=== PATIENT | male | born 1945 | race Caucasian/White ===

== ENCOUNTER → 2017-04-11 10:30 | Outpatient (CLI) | payer OTHER ==
[~2017-04-11 10:30] MED LIST: AMOX1TAB12 PO; PLAVIX75 MG; ULTRACET PO
== END | disposition home or self-care (01) ==
LOC: MRI 08:15
DX: C18.9 Malignant neoplasm of colon, unspecified (principal)
CPT/HCPCS: 72197; 74183; A9579

== ENCOUNTER 2018-04-03 10:16 | Outpatient (CLI) | payer OTHER | END 2018-04-03 10:35 | disposition home or self-care (01) | LOC: TOM 10:16 | DX: C18.8 Malignant neoplasm of overlapping sites of colon (principal) | CPT/HCPCS: 71046; 74178; Q9965 ==

== ENCOUNTER 2020-06-07 13:23 | Outpatient (CLI) | payer OTHER | END 2020-06-07 13:55 | disposition home or self-care (01) | LOC: OFIC 805 13:23 | PROVIDERS: ATTEND Otolaryngology Otology & Neurotology | DX: H74.03 Tympanosclerosis, bilateral (principal); H91.13 Presbycusis, bilateral ==

== ENCOUNTER 2022-10-09 15:54 | Emergency (ER) | payer OTHER ==
[~2022-10-09] VITALS: Ht 182.9 cm; Wt 90.7 kg
== END 2022-10-09 23:01 | disposition home or self-care (01) ==
LOC: ER 15:54
PROVIDERS: General Practice
DX: J06.9 Acute upper respiratory infection, unspecified (principal); I10 Essential (primary) hypertension; Z20.822 Contact with and (suspected) exposure to COVID-19; N40.0 Benign prostatic hyperplasia without lower urinary tract symptoms; K40.90 Unilateral inguinal hernia, without obstruction or gangrene, not specified as recurrent
CPT/HCPCS: 36415; 71046; 71250; 74177; 96365; 99284; J2930; Q9965

== ENCOUNTER 2022-10-19 16:03 | Inpatient (IN) | payer OTHER ==
[~2022-10-19] VITALS: Ht 175.3 cm; Wt 81.6 kg
[2022-10-19] MEDS ORDERED: ZETIA10 MG (17:02)
[2022-10-19] MEDS ORDERED: METROPOLOL (17:02)
--- NOTE | 2022-10-19 17:03 | NUR ---
PTE ALERTA Y ORIENTADO X3, ACOMPANADO POR HIJA QUIEN REFIERE RESULTADOS DE LAB ALTERADOS, GLOBULOS BLANCOS 11.14, ALP 1723, AST 402, ALT 561 Y BILIRUBIN 3.50. FAMILIAR REFIERE PAISAN LO REFIRIO A [facility] ( NO ES [facility]). SE LONG SV Y SE UBICA.
--- NOTE | 2022-10-19 17:50 | NUR ---
MANUELITO ALEGRIA ORIENTA A PTE SOBRE TRATAMIENTO E INSTRUCCIONES A SEGUIR, EL REFIERE ENTENDER. LE COLECTA MUESTRAS, SE CANALIZA Y SE ADMINISTRA IV FLUIDS FILIPE ORDEN MEDICA
[2022-10-20] MEDS ORDERED: ATORVASTATIN CA40 MG (08:00)
== END 2022-10-26 15:01 | disposition home or self-care (01) | DRG 446 ==
LOC: ER 16:04 → MEDI 20:19
PROVIDERS: General Practice; Internal Medicine; Internal Medicine Gastroenterology; ADMIT Internal Medicine; ATTEND Internal Medicine
PROC: BF37YZZ Magnetic Resonance Imaging (MRI) of Pancreas using Other Contrast (ICD-10-PCS; 2022-10-19)
PROC: BF47ZZZ Ultrasonography of Pancreas (ICD-10-PCS; 2022-10-19)
PROC: B24BYZZ Ultrasonography of Heart with Aorta using Other Contrast (ICD-10-PCS; 2022-10-20)
PROC: 0FJD8ZZ Inspection of Pancreatic Duct, Via Natural or Artificial Opening Endoscopic (ICD-10-PCS; principal; 2022-10-24 07:00)
DX: K83.8 Other specified diseases of biliary tract (principal); I25.10 Atherosclerotic heart disease of native coronary artery without angina pectoris; I10 Essential (primary) hypertension; R74.01 Elevation of levels of liver transaminase levels; J06.9 Acute upper respiratory infection, unspecified; Z85.048 Personal history of other malignant neoplasm of rectum, rectosigmoid junction, and anus

== ENCOUNTER 2023-04-10 11:17 | Day surgery (SDC) | payer OTHER ==
[2023-04-03 10:08] LABS: HEMATOCRIT 45.1 % (39.0-48.0); HEMOGLOBIN 15.5 g/dL (13-16.00); MEAN CELL VOLUME 92.4 fL (80.0-100.00); MEAN CORPUSCULAR HEMOGLOBIN 31.8 pg (27.00-32.0); MEAN CORPUSCULAR HGB CONC 34.4 g/dl (32.0-36.0); PLATELET COUNT 266 K/uL (150-450); RED BLOOD COUNT 4.88 M/uL (4.00-6.00); RED CELL DISTRIBUTION WIDTH 14.4 % (11.5-14.5)
[2023-04-03 10:45] LABS: ALBUMIN 3.8 gm/dL (3.4-5.0); BILIRUBIN TOTAL 0.93 mg/dL (0.3-1.2); CALCIUM 10.2 mg/dL (8.5-10.1); CREATININE SERUM 0.9 mg/dL (0.70-1.30); GFR 81.61; GLOBULINA 4.1 G/DL (2.4-3.5); POTASSIUM 5.1 mEq/L (3.5-5.1); TOTAL PROTEIN 7.9 gm/dL (6.4-8.2)
[2023-04-03 10:46] LABS: INR 1.01; PARTIAL THROMBOPLASTIN TIME 30.8 SECONDS (22.0-34.0); PROTHROMBIN TIME 10.6 SECONDS (9.0-11.5)
[~2023-04-10 11:17] MED LIST changes: +ATORVASTATIN CA40 MG; +METROPOLOL; +ZETIA10 MG
[2023-04-10] MEDS ORDERED: GLUCAGON 1 MG VIAL IV ONE (14:00)
[2023-04-10] MEDS ORDERED: IOVERSOL 320 MG/ML - 100 ML VIAL IV ONE (14:00)
== END 2023-04-10 16:15 | disposition home or self-care (01) ==
LOC: AMB-ERCP 11:17
PROVIDERS: ATTEND Internal Medicine Gastroenterology
DX: K80.50 Calculus of bile duct without cholangitis or cholecystitis without obstruction (principal)

== ENCOUNTER 2023-09-07 21:20 | Emergency (ER) | payer OTHER ==
[~2023-09-07] VITALS: Ht 175.3 cm; Wt 73.5 kg
[~2023-09-07 21:20] MED LIST changes: +ALLEGRA ALLERG180 MG PO; +CEFDINIR300 MG PO; +DERMACINRX THE135 GM TOP; +INTESTINEX680 M1 PO; +KAPSPARGO SPRIN50 MG PO; +METRONIDAZOLE500 MG PO; +PRE PROTEIN1 EACH PO; +PREDNISONE20 M1 PO
[2023-09-07] MEDS ORDERED: 0.9 % SODIUM CHLORIDE 500 ML IV SCH (22:00)
[2023-09-07] MEDS ORDERED: ONDANSETRON HCL 2 MG/ML VIAL IV ONE (22:00)
[2023-09-07] MEDS ORDERED: ONDANSETRON HCL 2 MG/ML VIAL ONE (22:08)
[2023-09-07 22:46] LABS: URINE APPEARANCE Clear; URINE BILIRRUBIN Negative (NEGATIVE); URINE BLOOD Negative; URINE COLOR Yellow; URINE GLUCOSE Negative (NEGATIVE); URINE LEUKOCYTE Negative; URINE NITRATE Negative; URINE PROTEIN Trace (NEGATIVE)
[2023-09-07 22:49] LABS: URINE EPITHELIAL CELLS 2.3 uL (0.0-38.8); URINE RBC 6.7 uL (0.0-20.8); URINE WBC 2.7 uL (0.0-23.2)
[2023-09-07 22:51] LABS: HEMOGLOBIN 12.6 g/dL (13-16.00); MEAN CELL VOLUME 91.4 fL (80.0-100.00); PLATELET COUNT 335 K/uL (150-450); RED BLOOD COUNT 4.05 M/uL (4.00-6.00); RED CELL DISTRIBUTION WIDTH 16.3 % (11.5-14.5)
[2023-09-07 23:10] LABS: INR 1.1; PARTIAL THROMBOPLASTIN TIME 34.7 SECONDS (22.0-34.0); PROTHROMBIN TIME 11.5 SECONDS (9.0-11.5)
[2023-09-07 23:14] LABS: ALBUMIN 2.9 gm/dL (3.4-5.0); BILIRUBIN TOTAL 1.35 mg/dL (0.3-1.2); BILIRUBIN,CONJUGATED 0.42 mg/dL (0.0-0.2); BILIRUBIN,UNCONJUGATED 0.93 mg/dL (0.0-0.6); CALCIUM 9.2 mg/dL (8.5-10.1); CREATININE SERUM 0.91 mg/dL (0.70-1.30); GFR 80.37; GLOBULINA 4.3 G/DL (2.4-3.5); POTASSIUM 3.9 mEq/L (3.5-5.1); TOTAL PROTEIN 7.2 gm/dL (6.4-8.2)
== END 2023-09-08 01:50 | disposition home or self-care (01) ==
LOC: ER 21:21
PROVIDERS: Emergency Medicine
DX: R10.13 Epigastric pain (principal); K29.70 Gastritis, unspecified, without bleeding; R50.9 Fever, unspecified; R10.9 Unspecified abdominal pain; Z20.822 Contact with and (suspected) exposure to COVID-19; I10 Essential (primary) hypertension
CPT/HCPCS: 36415; 96365; 96366; 99282; J2405; J7042

== ENCOUNTER 2023-09-23 19:57 | Inpatient (IN) | payer OTHER ==
[~2023-09-23] VITALS: Ht 152.4 cm; Wt 71.2 kg
[2023-09-23] MEDS ORDERED: RINGERS SOLUTION,LACTATED 1,000 ML IV ONE (22:00)
[2023-09-23 23:44] LABS: PH,URINE 5.5 (5.0-8.0); URINE APPEARANCE Clear; URINE BILIRRUBIN Small (NEGATIVE); URINE BLOOD Negative; URINE COLOR Orange; URINE GLUCOSE Negative (NEGATIVE); URINE KETONE Trace (NEGATIVE); URINE LEUKOCYTE Trace; URINE NITRATE Positive; URINE PROTEIN 30 (NEGATIVE)
[2023-09-23 23:48] LABS: URINE BACTERIA 32.7 uL (0.0-1933); URINE EPITHELIAL CELLS 40.8 uL (0.0-38.8); URINE RBC 8.5 uL (0.0-20.8); URINE WBC 10.8 uL (0.0-23.2)
[2023-09-24] MEDS ORDERED: CEFTRIAXONE SODIUM 1,000 MG VIAL IV ONE (00:15)
[2023-09-24] MEDS ORDERED: CEFTRIAXONE SODIUM 1,000 MG VIAL ONE (00:16)
[2023-09-24 00:27] LABS: URINE CAST 1.06 uL (0.0-1.40)
[2023-09-24 00:33] LABS: MEAN CELL VOLUME 91.8 fL (80.0-100.00); MEAN CORPUSCULAR HEMOGLOBIN 30.7 pg (27.00-32.0); MEAN CORPUSCULAR HGB CONC 33.5 g/dl (32.0-36.0); PLATELET COUNT 229 K/uL (150-450); RED BLOOD COUNT 3.92 M/uL (4.00-6.00); RED CELL DISTRIBUTION WIDTH 16.6 % (11.5-14.5)
[2023-09-24 00:48] LABS: ALBUMIN 2.6 gm/dL (3.4-5.0); BILIRUBIN TOTAL 2.36 mg/dL (0.3-1.2); CALCIUM 8.6 mg/dL (8.5-10.1); CREATININE SERUM 1.24 mg/dL (0.70-1.30); GFR 56.24; GLOBULINA 3.4 G/DL (2.4-3.5); POTASSIUM 3.85 mEq/L (3.5-5.1)
[2023-09-24 00:50] LABS: INR 1.47; PARTIAL THROMBOPLASTIN TIME 32.2 SECONDS (22.0-34.0)
[2023-09-24 01:00] LABS: ALBUMIN 2.6 gm/dL (3.4-5.0); BILIRUBIN TOTAL 2.34 mg/dL (0.3-1.2); BILIRUBIN,CONJUGATED 0.85 mg/dL (0.0-0.2); BILIRUBIN,UNCONJUGATED 1.49 mg/dL (0.0-0.6); TOTAL PROTEIN 6.1 gm/dL (6.4-8.2)
[2023-09-24] MEDS ORDERED: ACETAMINOPHEN 500 MG GEL..CAP PO ONE ×2 (06:01→06:30)
[2023-09-24 06:34] LABS: HEMOGLOBIN 13.5 g/dL (13-16.00); MEAN CELL VOLUME 92.9 fL (80.0-100.00); MEAN CORPUSCULAR HEMOGLOBIN 31.5 pg (27.00-32.0); MEAN CORPUSCULAR HGB CONC 33.9 g/dl (32.0-36.0); PLATELET COUNT 257 K/uL (150-450); RED CELL DISTRIBUTION WIDTH 16.8 % (11.5-14.5)
[2023-09-24 06:45] LABS: ALBUMIN 2.9 gm/dL (3.4-5.0); BILIRUBIN TOTAL 1.78 mg/dL (0.3-1.2); BILIRUBIN,CONJUGATED 0.79 mg/dL (0.0-0.2); BILIRUBIN,UNCONJUGATED 0.99 mg/dL (0.0-0.6); CALCIUM 9.1 mg/dL (8.5-10.1); CREATININE SERUM 1.1 mg/dL (0.70-1.30); GFR 64.57; GLOBULINA 3.9 G/DL (2.4-3.5); POTASSIUM 4.55 mEq/L (3.5-5.1); TOTAL PROTEIN 6.8 gm/dL (6.4-8.2)
[2023-09-24] MEDS ORDERED: 0.9 % SODIUM CHLORIDE 1,000 ML IV ONE (08:00)
[2023-09-24] MEDS ORDERED: 0.9 % SODIUM CHLORIDE 250 ML IV SCH (08:00)
[2023-09-24] MEDS ORDERED: MEROPENEM 1,000 MG in 0.9 % SODIUM CHLORIDE 100 ML IV SCH (10:24)
[2023-09-24] MEDS ORDERED: ENOXAPARIN SODIUM 30 MG/0.3 ML SYRINGE SUBCUTANEO SCH (10:25)
[2023-09-24] MEDS ORDERED: ASPIRIN 81 MG TAB.CHEW PO SCH (10:25)
[2023-09-24] MEDS ORDERED: METOPROLOL SUCCINATE 25 MG TAB.SR.24H PO SCH (10:25)
[2023-09-24] MEDS ORDERED: ONDANSETRON HCL 4 MG in 0.9 % SODIUM CHLORIDE 50 ML IV PRN (10:30)
[2023-09-24] MEDS ORDERED: 0.9 % SODIUM CHLORIDE 1,000 ML IV SCH (10:30)
[2023-09-24] MEDS ORDERED: hydrALAZINE HCL 20 MG VIAL IV PRN (10:30)
[2023-09-24] MEDS ORDERED: MORPHINE SULFATE 4 MG/ML VIAL IV PRN (10:30)
[2023-09-24] MEDS ORDERED: INSULIN LISPRO 1,000 UNIT/10 ML UNITS SUBCUTANEO PRN (10:30)
[2023-09-24] MEDS ORDERED: DEXTROSE 50 % IN WATER 0.5 G/ML DISP.SYRIN IV PRN (10:30)
[2023-09-24] MEDS ORDERED: METOPROLOL SUCCINATE 50 MG TAB.SR.24H PO SCH (10:39)
[2023-09-24 10:55] LABS: BASE EXCESS -0.6 mmol/l; BICARBONATE 23.4 mmol/l (23-25); SaO2 96.7 %; Tco2 24.6 mmol/l; allen test SATISFACTORY; o2 21 %; puncture site RADIAL RIGHT
[2023-09-24] MEDS ORDERED: CLONAZEPAM 0.5 MG TABLET PO SCH (21:00)
[2023-09-25 06:42] LABS: HEMATOCRIT 34.3 % (39.0-48.0); HEMOGLOBIN 11.8 g/dL (13-16.00); MEAN CELL VOLUME 91.3 fL (80.0-100.00); MEAN CORPUSCULAR HEMOGLOBIN 31.4 pg (27.00-32.0); MEAN CORPUSCULAR HGB CONC 34.5 g/dl (32.0-36.0); PLATELET COUNT 219 K/uL (150-450); RED BLOOD COUNT 3.75 M/uL (4.00-6.00); RED CELL DISTRIBUTION WIDTH 16.6 % (11.5-14.5)
[2023-09-25 07:24] LABS: ALBUMIN 2.2 gm/dL (3.4-5.0); BILIRUBIN TOTAL 0.61 mg/dL (0.3-1.2); BILIRUBIN,CONJUGATED 0.27 mg/dL (0.0-0.2); BILIRUBIN,UNCONJUGATED 0.34 mg/dL (0.0-0.6); CHOL HDL RATIO 2.8 (0-5.0); PROSTATIC SPECIFIC ANTIGEN 2.82 NG/ML (0.010-4.00); T4 FREE 1.12 NG/ML (0.76-1.46); TOTAL PROTEIN 4.6 gm/dL (6.4-8.2); TSH 1.08 uIU/mL (0.358-3.74)
[2023-09-25 07:26] LABS: C-REACTIVE PROTEIN 9.4 MG/DL (0.00-0.29)
[2023-09-25] MEDS ORDERED: Cyanocobalamin/Mecobalamin 1 TAB.SL SL SCH (10:14)
[2023-09-25] MEDS ORDERED: PIPERACILLIN/TAZOBACTAM SODIUM 3.375 GM in 0.9 % SODIUM CHLORIDE 100 ML IV SCH (12:00)
[2023-09-25] MEDS ORDERED: SUCROSE IV SCH (13:00)
[2023-09-25] MEDS ORDERED: SOD FERRIC GLUC COMPLX IV SCH (13:00)
[2023-09-25] MEDS ORDERED: SODIUM CHLORIDE 0.9% IV SCH (13:00)
[2023-09-25] MEDS ORDERED: MORPHINE SULFATE 4 MG/ML CARTRIDGE IV PRN (15:30)
[2023-09-26] MEDS ORDERED: SODIUM CL 0.9% 100 ML IV.SOLN IV ONE (16:15)
[2023-09-26] MEDS ORDERED: CLOPIDOGREL BISULFATE 75 MG TABLET PO SCH (21:00)
[2023-09-27 06:24] LABS: HEMATOCRIT 33.5 % (39.0-48.0); HEMOGLOBIN 11.7 g/dL (13-16.00); MEAN CELL VOLUME 90.2 fL (80.0-100.00); MEAN CORPUSCULAR HEMOGLOBIN 31.6 pg (27.00-32.0); PLATELET COUNT 252 K/uL (150-450); RED BLOOD COUNT 3.71 M/uL (4.00-6.00); RED CELL DISTRIBUTION WIDTH 16.7 % (11.5-14.5)
[2023-09-27 06:58] LABS: ALBUMIN 2.5 gm/dL (3.4-5.0); BILIRUBIN TOTAL 0.69 mg/dL (0.3-1.2); CALCIUM 8.5 mg/dL (8.5-10.1); CREATININE SERUM 0.74 mg/dL (0.70-1.30); GFR 102.03; GLOBULINA 2.9 G/DL (2.4-3.5); POTASSIUM 4.04 mEq/L (3.5-5.1); TOTAL PROTEIN 5.4 gm/dL (6.4-8.2)
[2023-09-27] MEDS ORDERED: ATORVASTATIN CALCIUM 40 MG TABLET PO SCH (09:00)
[2023-09-27] MEDS ORDERED: CLOPIDOGREL BIS75 MG PO (11:00)
[2023-09-27] MEDS ORDERED: LIPITOR40 M1 PO (11:00)
[2023-09-27] MEDS ORDERED: ZETIA10 MG PO (11:01)
[2023-09-27] MEDS ORDERED: Neurin-Sl Tablet Sl SL (11:01)
[2023-09-27] MEDS ORDERED: ADULT ASPIRIN81 MG PO (11:01)
[2023-09-27] MEDS ORDERED: TOPROL XL50 M1 PO (11:01)
[2023-09-27] MEDS ORDERED: PANTOPRAZOLE SO40 MG PO (11:02)
[2023-09-27] MEDS ORDERED: AMOX-CLAV 875-1 EACH PO (11:02)
== END 2023-09-27 14:07 | disposition home or self-care (01) | DRG 445 ==
LOC: ER 19:58 → MEDI 09-24 11:10 → SEC-K 09-24 11:10 → MEDJ 09-24 13:27 → SEC-K 09-24 13:55 → MEDI 09-24 14:10
PROVIDERS: General Practice; ADMIT Internal Medicine; ATTEND Internal Medicine
DX: K81.0 Acute cholecystitis (principal); K86.1 Other chronic pancreatitis; I25.10 Atherosclerotic heart disease of native coronary artery without angina pectoris; I11.9 Hypertensive heart disease without heart failure

== ENCOUNTER 2024-09-20 11:24 | Emergency (ER) | payer OTHER ==
[~2024-09-20] VITALS: Ht 175.3 cm; Wt 68.9 kg
[~2024-09-20 11:24] MED LIST changes: +ADULT ASPIRIN81 MG PO; +AMOX-CLAV 875-1 EACH PO; +CLOPIDOGREL BIS75 MG PO; +LIPITOR40 M1 PO; +Neurin-Sl Tablet Sl SL; +PANTOPRAZOLE SO40 MG PO; +TOPROL XL50 M1 PO; +ZETIA10 MG PO
[2024-09-20 13:35] LABS: BASO % 0.4 % (0.1-1.2); EOS # 0.14 (0.04-0.54); EOS % 2.1 % (0.7-7.0); LYMPH # 2.63 (1.18-3.74); LYMPH % 39.4 % (19.3-53.1); MEAN PLATELET VOLUME 9.50 fl (9.4-12.4); MONO # 0.64 (0.24-0.82); MONO % 9.6 % (4.7-12.5); NEUT # 3.22 (1.56-6.13); NEUT % 48.4 % (34.0-71.1); RED CELL DISTRIBUTION WIDTH 14.1 % (11.6-14.4)
[2024-09-20 14:00] LABS: ALT/SGPT 47.0 U/L (12-78); AST/SGOT 43.0 U/L (15-37); BILIRUBIN TOTAL 0.42 mg/dL (0.3-1.2); BUN CREA RATIO 20.0 (7.0-25.0); CREATININE SERUM 0.98 mg/dL (0.70-1.30); GFR 73.59; GLOBULINA 3.0 G/DL (2.4-3.5); GLUCOSE FASTING 155.0 mg/dL (65-100); OSMOLALITY SERUM 283.0 MOSM/KG (275-295)
[2024-09-20 14:14] LABS: URINE APPEARANCE Clear; URINE BILIRRUBIN Negative (NEGATIVE); URINE BLOOD Negative; URINE COLOR Yellow; URINE GLUCOSE Negative (NEGATIVE); URINE KETONE Negative (NEGATIVE); URINE LEUKOCYTE Negative; URINE NITRATE Negative; URINE PROTEIN Negative (NEGATIVE); URINE UROBILINOGEN 0.2 E.U./dl
[2024-09-20 14:17] LABS: URINE WBC 2.1 uL (0.0-23.2)
[2024-09-20 14:24] LABS: URINE BACTERIA 0 uL (0.0-1933); URINE CAST 0.00 uL (0.0-1.40); URINE EPITHELIAL CELLS 1.0 uL (0.0-38.8); URINE RBC 0.7 uL (0.0-20.8)
[2024-09-20] MEDS ORDERED: ORPHENADRINE CITRATE 30 MG/ML AMPUL IM ONE (14:45)
[2024-09-20] MEDS ORDERED: KETOROLAC TROMETHAMINE 30 MG VIAL IM ONE (14:45)
[2024-09-20] MEDS ORDERED: ORPHENADRINE CITRATE 30 MG/ML AMPUL ONE (14:46)
[2024-09-20] MEDS ORDERED: KETOROLAC TROMETHAMINE 30 MG VIAL ONE (14:46)
== END 2024-09-20 15:48 ==
LOC: ER 11:24
PROVIDERS: General Practice
DX: M54.50 Low back pain, unspecified (principal); E78.00 Pure hypercholesterolemia, unspecified; I10 Essential (primary) hypertension; I25.10 Atherosclerotic heart disease of native coronary artery without angina pectoris; Z85.07 Personal history of malignant neoplasm of pancreas; E78.49 Other hyperlipidemia; E11.9 Type 2 diabetes mellitus without complications
CPT/HCPCS: 36415; 72100; 96372; 99283; J1885; J2360

== ENCOUNTER 2024-09-28 20:32 | Emergency (ER) | payer OTHER ==
[~2024-09-28] VITALS: Ht 175.3 cm; Wt 77.1 kg
[2024-09-28] MEDS ORDERED: LANTUS SOL100 UNIT/1 SQ (20:43)
[2024-09-28] MEDS ORDERED: 0.9 % SODIUM CHLORIDE 500 ML IV SCH (21:45)
[2024-09-28] MEDS ORDERED: ONDANSETRON HCL 2 MG/ML VIAL IV ONE (21:45)
[2024-09-28] MEDS ORDERED: MORPHINE SULFATE 4 MG/ML CARTRIDGE IV ONE (21:45)
[2024-09-28 21:48] LABS: BASO % 0.5 % (0.1-1.2); EOS # 0.08 (0.04-0.54); EOS % 1.0 % (0.7-7.0); LYMPH # 2.87 (1.18-3.74); LYMPH % 36.1 % (19.3-53.1); MEAN PLATELET VOLUME 9.30 fl (9.4-12.4); MONO # 0.70 (0.24-0.82); MONO % 8.8 % (4.7-12.5); NEUT # 4.24 (1.56-6.13); NEUT % 53.5 % (34.0-71.1); RED CELL DISTRIBUTION WIDTH 13.6 % (11.6-14.4)
[2024-09-28 22:24] LABS: ALT/SGPT 43.0 U/L (12-78); AST/SGOT 31.0 U/L (15-37); BILIRUBIN TOTAL 0.57 mg/dL (0.3-1.2); BILIRUBIN,CONJUGATED 0.17 mg/dL (0.0-0.2); BUN CREA RATIO 18.0 (7.0-25.0); CREATININE SERUM 0.84 mg/dL (0.70-1.30); GFR 87.92; GLOBULINA 3.0 G/DL (2.4-3.5); GLUCOSE FASTING 99.0 mg/dL (65-100); OSMOLALITY SERUM 278.0 MOSM/KG (275-295)
== END 2024-09-29 00:32 | disposition home or self-care (01) ==
LOC: ER 20:32
PROVIDERS: Emergency Medicine
DX: M54.50 Low back pain, unspecified (principal); C25.7 Malignant neoplasm of other parts of pancreas; E78.00 Pure hypercholesterolemia, unspecified; E05.80 Other thyrotoxicosis without thyrotoxic crisis or storm
CPT/HCPCS: 36415; 96365; 96366; 99282; J2270; J2405; J7042